=== PATIENT | female | born 1930 | race Caucasian/White ===

== ENCOUNTER 2019-05-07 21:51 | Inpatient (IN) ==
[2019-05-08] MEDS ORDERED: Naloxone 0.4 MG/ML INJ IVP PRN (00:37)
[2019-05-08] MEDS ORDERED: D5% in 0.45% NACL 1,000 ML IVC SCH (01:00)
[2019-05-08] MEDS ORDERED: Vancomycin 0 MG in 0.9 % Sodium Chloride 250 ML IVPB SCH (01:00)
[2019-05-08] MEDS ORDERED: 0.9 % Sodium Chloride 500 ML ONE (01:02)
[2019-05-08] MEDS: Norepinephrine 4 MG in 0.9 % Sodium Chloride 250 ML IVC SCH ×3 (01:30→06:23)
[2019-05-08 02:29] LABS: Mean Corpuscular Hemoglobin 27.7 pg (28.0-33.3); Nucleated Red Blood Cells 0.4 /100 WBC (0)
[2019-05-08 02:31] LABS: Basophils # 0.1 K/mcL (0.0-0.2); Basophils % 0.4 %; Hematocrit 49.2 % (35.3-44.9); Hemoglobin 14.6 g/dL (11.5-15.4); Immature Granulocytes % 2.9 % (0-4); Lymphocytes # 2.5 K/mcL (0.6-4.6); Lymphocytes % 8.6 %; Mean Corpuscular HGB Conc 29.7 g/dL (31.6-35.5); Mean Corpuscular Volume 93.2 fL (83.0-100.0); Mean Platelet Volume 14.5 fL (9.4-12.4); Monocytes # 2.5 K/mcL (0.0-1.3); Monocytes % 8.5 %; Platelet Count 159 K/mcL (140-400); Red Blood Count 5.28 M/mcL (3.82-4.97); Red Cell Distribution Width 14.4 % (11.5-14.5); Segmented Neutrophils % 79.6 %
[2019-05-08 02:34] LABS: Alanine Aminotransferase 39 Units/L (7-52); Albumin/Globulin Ratio 1.2 (1.1-2.2); Alkaline Phosphatase 85 Units/L (34-104); Aspartate Amino Transferase 33 Units/L (13-39); Bilirubin,Total 1.2 mg/dL (0.3-1.0); Blood Urea Nitrogen > 130 mg/dL (8-23); Calcium 8.1 mg/dL (8.6-10.3); Carbon Dioxide 20 mEq/L (23-29); Chloride 131 mEq/L (98-107); Globulin 2.5 g/dL (2.4-3.5); Glucose 285 mg/dL (70-105); Magnesium 2.9 mg/dL (1.6-2.6); Potassium 3.7 mEq/L (3.5-5.1); Sodium 167 mEq/L (136-145); Total Protein 5.5 g/dL (6.4-8.9); Troponin I 0.14 ng/mL (< 0.04); eGFR For African Americans 9 (> 60); eGFR For Non-African Americans 8 (> 60)
[2019-05-08 02:37] LABS: Neutrophils # 23.1 K/mcL (1.6-8.9)
[2019-05-08 03:22] LABS: Complement C3 102 mg/dL (87-200)
[2019-05-08 04:05] LABS: Platelet Estimate Normal (Normal)
[2019-05-08 04:08] LABS: Sodium, Urine < 10.0 mEq/L
[2019-05-08] MEDS: Vasopressin 40 UNIT in D5% in Water 100 ML IVC SCH ×2 (04:20→17:48)
[2019-05-08 04:31] LABS: Creatinine,Urine < 1 mg/dL
[2019-05-08 04:58] LABS: ABG Base Excess 1 mEq/L (-2 to 3); ABG HCO3 24 mEq/L (21-27); ABG Oxygen Saturation 100 % (95-98); ABG PCO2 35 mmHg (35-45); ABG PH 7.45 pH Units (7.32-7.45); ABG PO2 184 mmHg (85-104); ABG TCO2 25 mEq/L (20-26); Blood Gas Modality AF; Blood Gas VT 450 cc
[2019-05-08 04:58] LABS: INR 1.3; Prothrombin Time 14.6 Seconds (9.4-12.1)
[2019-05-08] MEDS ORDERED: 0.9 % Sodium Chloride 1,000 ML IVC ONE (05:44)
[2019-05-08] MEDS ORDERED: 0.9 % Sodium Chloride 1,000 ML ONE (05:51)
[2019-05-08 07:14] LABS: Troponin I 0.16 ng/mL (< 0.04)
[2019-05-08] MEDS ORDERED: Artificial Tears SOLN 15 ML BOTTLE BOTH EYES PRN (07:42)
[2019-05-08] MEDS ORDERED: Norepinephrine 8 MG in 0.9 % Sodium Chloride 250 ML IVC SCH (07:45)
[2019-05-08] MEDS ORDERED: Ringers Solution, Lactated 1,000 ML IVC ONE (07:45)
[2019-05-08] MEDS ORDERED: Ringers Solution, Lactated 1,000 ML ONE (07:50)
[2019-05-08] MEDS ORDERED: Perflutren Lipid Microsphere 1.3 ML in 0.9 % Sodium Chloride 8.7 ML IVP ONE (08:00)
[2019-05-08] MEDS: Chlorhexidine Rinse 15 ML MOUTHWASH MM SCH ×2 (08:07→20:07)
[2019-05-08] MEDS: Artificial Tears SOLN 15 ML BOTTLE BOTH EYES SCH ×4 (08:07→20:07)
[2019-05-08] MEDS: *HR* Heparin 5,000 UNIT/ML VIAL SQ SCH ×2 (08:08→16:50)
[2019-05-08] MEDS: Piperacillin/Tazobactam 3.375 GM in 0.9 % Sodium Chloride Mini Bag 100 ML IVPB SCH ×2 (08:08→20:07)
[2019-05-08 08:12] LABS: Triiodothyronine (T3) Free 2.1 pg/mL (2.50-3.90)
[2019-05-08] MEDS ORDERED: Aminoglycoside Consult 1 EACH MC ONE (08:32)
[2019-05-08] MEDS: Norepinephrine 8 MG in 0.9 % Sodium Chloride 250 ML IVC SCH ×2 (08:38→13:36)
[2019-05-08 09:39] LABS: Sodium 168 mEq/L (136-145); Vancomycin,Random 15 mcg/mL
[2019-05-08 10:16] LABS: Adenovirus Not Detected (Not Detect); Bordetella Pertussis Not Detected (Not Detect); Chlamydophila pneumoniae Not Detected (Not Detect); Coronavirus 229E Not Detected (Not Detect); Coronavirus HKU1 Not Detected (Not Detect); Coronavirus NL63 Not Detected (Not Detect); Coronavirus OC43 Not Detected (Not Detect); Human Metapneumovirus Not Detected (Not Detect); Human Rhinovirus/Enterovirus Not Detected (Not Detect); Influenza A Subtype 2009 H1 Not Detected (Not Detect); Influenza B Not Detected (Not Detect); Mycoplasma pneumoniae Not Detected (Not Detect); Parainfluenza Virus 1 Not Detected (Not Detect); Parainfluenza Virus 2 Not Detected (Not Detect); Parainfluenza Virus 3 Not Detected (Not Detect); Parainfluenza Virus 4 Not Detected (Not Detect); Respiratory Syncytial Virus Not Detected (Not Detect)
[2019-05-08] MEDS: Pantoprazole 40 MG VIAL IVP SCH (10:41)
[2019-05-08] MEDS ORDERED: Amiodarone Premix 360 MG/200 ML BAG IVC ONE (10:58)
[2019-05-08] MEDS ORDERED: Amiodarone Premix 150 MG/100 ML BAG IVPB ONE (11:16)
[2019-05-08] MEDS: Phenylephrine 10 MG in 0.9 % Sodium Chloride 250 ML IVC SCH ×3 (11:41→14:51)
[2019-05-08 11:50] LABS: Blood Urea Nitrogen > 130 mg/dL (8-23); Calcium 7.4 mg/dL (8.6-10.3); Carbon Dioxide 18 mEq/L (23-29); Chloride 127 mEq/L (98-107); Glucose 279 mg/dL (70-105); Potassium 4.1 mEq/L (3.5-5.1); Sodium 167 mEq/L (136-145); eGFR For African Americans 10 (> 60); eGFR For Non-African Americans 8 (> 60)
[2019-05-08] MEDS: methylPREDNISolone 125 MG/2 ML VIAL IVP SCH ×2 (12:20→17:30)
[2019-05-08] MEDS: D5% in Water 1,000 ML IVC SCH (12:22)
[2019-05-08] MEDS ORDERED: *HR* LORazepam 2 MG/ML VIAL IVP PRN (12:53)
[2019-05-08 13:25] LABS: Blood Urea Nitrogen > 130 mg/dL (8-23); Calcium 7.3 mg/dL (8.6-10.3); Carbon Dioxide 19 mEq/L (23-29); Chloride 125 mEq/L (98-107); Glucose 298 mg/dL (70-105); Magnesium 2.4 mg/dL (1.6-2.6); Phosphorous 4.5 mg/dL (2.7-4.5); Sodium 164 mEq/L (136-145); Vancomycin,Trough 13 mcg/mL (5-10); eGFR For African Americans 11 (> 60); eGFR For Non-African Americans 9 (> 60)
[2019-05-08] MEDS: FentaNYL (PF) 1,000 MCG in 0.9 % Sodium Chloride 80 ML IVC SCH (13:30)
[2019-05-08] MEDS ORDERED: Vancomycin 500 MG in 0.9 % Sodium Chloride Mini Bag 100 ML IVPB ONE (14:00)
[2019-05-08] MEDS: Dexmedetomidine HCl 400 MCG/100 ML MLS IVC SCH (14:35)
[2019-05-08] MEDS: Doxycycline 100 MG in 0.9 % Sodium Chloride Mini Bag 100 ML IVPB SCH (14:40)
[2019-05-08] MEDS: Phenylephrine 50 MG in 0.9 % Sodium Chloride 250 ML IVC SCH ×2 (14:52→21:59)
[2019-05-08] MEDS: Norepinephrine 16 MG in 0.9 % Sodium Chloride 500 ML IVC SCH (16:43)
[2019-05-08] MEDS: Amiodarone Premix 360 MG/200 ML BAG IVC SCH (17:28)
[2019-05-08] MEDS ORDERED: Doxycycline 100 MG in 0.9 % Sodium Chloride Mini Bag 100 ML IVPB SCH (18:00)
[2019-05-09] MEDS: methylPREDNISolone 125 MG/2 ML VIAL IVP SCH ×2 (00:19→05:31)
[2019-05-09] MEDS: *HR* Heparin 5,000 UNIT/ML VIAL SQ SCH ×2 (00:19→08:49)
[2019-05-09] MEDS: Doxycycline 100 MG in 0.9 % Sodium Chloride Mini Bag 100 ML IVPB SCH (00:19)
[2019-05-09] MEDS: Artificial Tears SOLN 15 ML BOTTLE BOTH EYES SCH ×3 (00:20→08:40)
[2019-05-09] MEDS ORDERED: *HR* Norepinephrine 4 MG/4 ML VIAL IVC ONE (00:58)
[2019-05-09] MEDS ORDERED: 0.9 % Sodium Chloride 250 ML ONE (00:59)
[2019-05-09] MEDS: Norepinephrine 4 MG in 0.9 % Sodium Chloride 250 ML IVC SCH (01:00)
[2019-05-09] MEDS: Phenylephrine 50 MG in 0.9 % Sodium Chloride 250 ML IVC SCH (03:49)
[2019-05-09] MEDS: D5% in Water 1,000 ML IVC SCH ×2 (04:01→08:49)
[2019-05-09] MEDS: Norepinephrine 16 MG in 0.9 % Sodium Chloride 500 ML IVC SCH (04:45)
[2019-05-09] MEDS: Amiodarone Premix 360 MG/200 ML BAG IVC SCH (05:31)
[2019-05-09] MEDS ORDERED: Scopolamine Patch 1.5 MG PATCH.TD72 TD SCH (06:00)
[2019-05-09] MEDS ORDERED: Morphine Sulfate 2 MG/ML SYRINGE IVP PRN (06:00)
[2019-05-09] MEDS: Chlorhexidine Rinse 15 ML MOUTHWASH MM SCH (08:39)
[2019-05-09] MEDS: Piperacillin/Tazobactam 3.375 GM in 0.9 % Sodium Chloride Mini Bag 100 ML IVPB SCH (08:39)
[2019-05-09] MEDS: Pantoprazole 40 MG VIAL IVP SCH (08:39)
[2019-05-09] MEDS: Vasopressin 40 UNIT in D5% in Water 100 ML IVC SCH (08:49)
[2019-05-09] MEDS ORDERED: Atropine Sulfate 1% 40 DROP/2 ML BOTTLE SL PRN ×2 (08:51→10:55)
[2019-05-09] MEDS: FentaNYL (PF) 1,000 MCG in 0.9 % Sodium Chloride 80 ML IVC SCH (09:48)
[2019-05-09] MEDS: Dexmedetomidine HCl 400 MCG/100 ML MLS IVC SCH (09:48)
[2019-05-09] MEDS: Morphine Sulfate 2 MG/ML SYRINGE IVP PRN ×3 (12:16→17:48)
[2019-05-09] MEDS ORDERED: Haloperidol Lactate 5 MG/ML VIAL IVP PRN (13:55)
[2019-05-10] MEDS: Morphine Sulfate 2 MG/ML SYRINGE IVP PRN ×4 (03:51→22:51)
[2019-05-10 06:53] LABS: Serine Protease-3 Antibody 0 AU/mL (0-19)
[2019-05-10] MEDS: *HR* LORazepam 2 MG/ML VIAL IVP PRN (22:51)
[2019-05-11] MEDS: Morphine Sulfate 2 MG/ML SYRINGE IVP PRN ×3 (01:55→10:31)
[2019-05-11] MEDS: *HR* LORazepam 2 MG/ML VIAL IVP PRN (06:49)
[2019-05-11 07:51] VITALS: BP 109/62
[2019-05-12] MEDS ORDERED: Scopolamine Patch 1.5 MG PATCH.TD72 TD SCH (06:00)
== END 2019-05-11 11:30 | DRG 871 ==
LOC: SUATTDRO 05-08 00:16 → ICNU 05-08 00:16 → 2ANU 05-09 16:22
PROVIDERS: ADMIT Internal Medicine; ATTEND Family Medicine